=== PATIENT | female | born 2000 | race Two or more races ===

== ENCOUNTER 2020-05-26 21:47 | Emergency (ER) | payer BC, OTHER ==
[~2020-05-26] VITALS: Ht 167.6 cm; Wt 68.0 kg
[2020-05-26] MEDS ORDERED: FAMOTIDINE (10MG/ML) 2ML VL IV ONE (22:45)
[2020-05-26] MEDS ORDERED: methylPREDNISolone SOD SUCC 125 MG/2 ML VL IV ONE (22:45)
[2020-05-26] MEDS ORDERED: diphenhdrAMINE HCL 50 MG/1 ML VL IV ONE (22:45)
[2020-05-26] MEDS ORDERED: EPINEPHrine HCL 1 MG/1 ML AMP ONE (23:02)
[2020-05-26] MEDS ORDERED: SODIUM CHLORIDE 0.9% 1,000 ML IV ONE (23:45)
[2020-05-26] MEDS ORDERED: EPINEPHrine HCL 1 MG/1 ML AMP SC ONE (23:45)
[2020-05-27 04:00] VITALS: BP 118/53
[2020-05-27] MEDS ORDERED: HYDROcodone-ACET 5/325MG TAB PO ONE (05:15)
== END 2020-05-27 07:06 | disposition home or self-care (01) ==
LOC: ER 21:51
DX: T78.40XA Allergy, unspecified, initial encounter (principal); T78.3XXA Angioneurotic edema, initial encounter; X58.XXXA Exposure to other specified factors, initial encounter
CPT/HCPCS: 96361; 96372; 96374; 96375; 99284; J0171; J1200; J2930; J3490; J7030